=== PATIENT | female | born 1950 | race Caucasian/White ===

== ENCOUNTER 2021-02-14 00:23 | Emergency (ER) | payer BC ==
[~2021-02-14] VITALS: Ht 160 cm; Wt 80.3 kg
[2021-02-14 00:25] VITALS: BP_SYST 152
--- NOTE | 2021-02-14 01:22 | NUR ---
PT BIB DAUGHTER FOR LEFT EYE BLURRYNESS SINCE 2099 YESTERDAY. PT HAD A RETINAL TEAR IN AUGUST OF 2019 AND HAD SURGERY FOR IT. PT HAS BEEN FINE SINCE BUT TODAY SHE STARTED EXPERIENCING LEFT EYE BLURRY. STATES 6/10 PAIN.
--- NOTE | 2021-02-14 01:26 | NUR ---
ER at bedside examining patient.
--- NOTE | 2021-02-14 02:28 | NUR ---
Patient does not wish to proceed with medical care recommended by DR. WANG. Patient given information related to possible complications, up to and including , which could occur as a result of leaving hospital at this time. Patient verbalizes understanding of risks involved leaving against medical advice. Patient has signed AMA form.
== END 2021-02-14 02:25 | disposition left against medical advice (07) ==
LOC: SED 00:23
DX: H54.7 Unspecified visual loss (principal)
CPT/HCPCS: 99282